=== PATIENT | female | born 1985 | race Caucasian/White ===

== ENCOUNTER 2019-07-14 11:14 | Outpatient (CLI) | payer BC ==
[~2019-07-14] VITALS: Ht 165.1 cm; Wt 97.7 kg
[~2019-07-14 11:14] MED LIST: ACYC-113 PO; ALBU0.63 INH; IBUP-1221 PO; IBUP-1222 PO; LORA-445 PO; OXYC-302 PO; PARO20TA98 PO; PREN1TAB60 PO
[2019-07-14 11:35] VITALS: BP 100/62
== END 2019-07-14 11:50 | disposition home or self-care (01) ==
LOC: LDOP 11:14
PROVIDERS: ATTEND Obstetrics & Gynecology
DX: O26.893 Other specified pregnancy related conditions, third trimester (principal); R20.0 Anesthesia of skin; Z3A.29 29 weeks gestation of pregnancy
CPT/HCPCS: 59025; 99211; G0463

== ENCOUNTER 2019-09-19 21:01 | Inpatient (IN) | payer BC ==
[~2019-09-19] VITALS: Ht 165.1 cm; Wt 100.0 kg
[2019-09-19] MEDS ORDERED: D5%-LACTATED RINGERS 1,000 ML IV SCH (21:02)
[2019-09-19] MEDS ORDERED: OXYTOCIN 30U/ 0.9% NaCL 500ML 500 ML IV PRN ×2 (21:02)
[2019-09-19] MEDS ORDERED: OXYTOCIN 30U/ 0.9% NaCL 500ML 500 ML IV ONE (21:02)
[2019-09-19] MEDS ORDERED: LACTATED RINGERS 1,000 ML IV SCH (21:02)
[2019-09-19] MEDS ORDERED: OXYTOCIN 30U/ 0.9% NaCL 500ML 500 ML ONE (21:08)
[2019-09-19] MEDS ORDERED: LIDOCAINE 1%, 20ML ONE ×2 (21:08→23:23)
[2019-09-19] MEDS ORDERED: MISOPROSTOL 200 MCG TABLET ONE ×2 (21:08→23:23)
[2019-09-19] MEDS ORDERED: NEWBORN KIT ONE (21:08)
[2019-09-19 21:20] VITALS: BP 113/67
[2019-09-19] MEDS ORDERED: TERBUTALINE 1 MG/ML, 1ML IVPush PRN (21:30)
[2019-09-19] MEDS ORDERED: CALCIUM CARBONATE 500 MG TAB.CHEW PO PRN (21:30)
[2019-09-19] MEDS ORDERED: FENTANYL PF 100 MCG/2ML IV PRN (21:30)
[2019-09-19] MEDS ORDERED: FENTANYL PF 100 MCG/2ML IVPush PRN (21:30)
[2019-09-19] MEDS ORDERED: MISOPROSTOL 25 MCG TABLET VG PRN (21:30)
[2019-09-19] MEDS ORDERED: TERBUTALINE 1 MG/ML, 1ML SQ PRN (21:30)
[2019-09-19] MEDS ORDERED: ONDANSETRON 2MG/ML, 2ML IVPush PRN (21:30)
[2019-09-19 21:41] LABS: BASOPHILS # (AUTO) 0.06 x10^3/uL (0-0.1); BASOPHILS % (AUTO) 1 % (0-1); EOSINOPHILS # (AUTO) 0.19 x10^3/uL (0-0.4); EOSINOPHILS % (AUTO) 3 % (1-7); LYMPHOCYTES # (AUTO) 1.72 x10^3/uL (1-3.4); LYMPHOCYTES % (AUTO) 24 % (22-44); MD NO; MEAN CORPUSCULAR HEMOGLOBIN 31.8 pg (27.0-34.8); MEAN CORPUSCULAR HGB CONC 33.7 g/dL (32.4-35.8); MEAN CORPUSCULAR VOLUME 94.3 fL (80-100); MEAN PLATELET VOLUME 7.8 fL (7.4-10.4); MONOCYTES # (AUTO) 0.39 x10^3/uL (0.2-0.8); MONOCYTES % (AUTO) 5 % (2-9); NEUTROPHILS # (AUTO) 4.86 x10^3/uL (1.8-6.8); NEUTROPHILS % (AUTO) 67 % (42-75); PLATELET COUNT 227 x10^3/uL (130-400); RED BLOOD COUNT 4.05 x10^6/uL (3.82-5.3); RED CELL DISTRIBUTION WIDTH 13.7 % (9.6-15.2)
[2019-09-19] MEDS ORDERED: MISOPROSTOL 25 MCG TABLET ONE (22:03)
[2019-09-19] MEDS ORDERED: METOCLOPRAMIDE 5 MG/ML, 2ML IV ONE (23:00)
[2019-09-19] MEDS ORDERED: SODIUM CITRATE/CITRIC ACID 30 ML UDC PO ONE (23:00)
[2019-09-19] MEDS ORDERED: LACTATED RINGERS 1,000 ML IVBOLUS ONE (23:00)
[2019-09-19] MEDS ORDERED: METOCLOPRAMIDE 5 MG/ML, 2ML ONE (23:16)
[2019-09-19] MEDS ORDERED: SODIUM CITRATE/CITRIC ACID 30 ML UDC ONE (23:16)
[2019-09-19] MEDS ORDERED: ACYCLOVIR 400 MG TABLET ONE (23:38)
[2019-09-19] MEDS: ACYCLOVIR 400 MG TABLET PO SCH (23:42)
[2019-09-20] MEDS ORDERED: CALCIUM CARBONATE 500 MG TAB.CHEW PO PRN (01:00)
[2019-09-20] MEDS ORDERED: CALCIUM CARBONATE 500 MG TAB.CHEW ONE (01:16)
[2019-09-20] MEDS ORDERED: ACYCLOVIR 400 MG TABLET ONE (07:00)
[2019-09-20] MEDS: ACYCLOVIR 400 MG TABLET PO SCH ×2 (07:02→17:54)
[2019-09-20] MEDS ORDERED: morphine SULFATE/PF 0.5 MG/ML, 10ML ONE (07:06)
[2019-09-20] MEDS ORDERED: WATER-INJECTION,STERILE 10 ML IV ONE (08:35)
[2019-09-20] MEDS ORDERED: PHENYLEPHRINE 10 MG/ML ONE (08:35)
[2019-09-20] MEDS ORDERED: OXYTOCIN 10 UNITS/ML, 1ML ONE (08:35)
[2019-09-20] MEDS ORDERED: ONDANSETRON 2MG/ML, 2ML ONE (08:35)
[2019-09-20] MEDS ORDERED: EPHEDRINE 50 MG/ML, 1ML ONE (08:35)
[2019-09-20] MEDS ORDERED: CEFAZOLIN 1,000 MG ONE (08:35)
[2019-09-20] MEDS: LACTATED RINGERS 1,000 ML IV SCH ×4 (08:51→18:51)
[2019-09-20] MEDS ORDERED: METOCLOPRAMIDE 5 MG/ML, 2ML IV PRN (09:00)
[2019-09-20] MEDS ORDERED: MISOPROSTOL 200 MCG TABLET ONE (09:00)
[2019-09-20] MEDS ORDERED: MEPERIDINE/PF 50 MG/ML IVPush PRN (09:00)
[2019-09-20] MEDS ORDERED: MORPHINE SULFATE 4 MG/ML, 1ML IVPush PRN (09:00)
[2019-09-20] MEDS ORDERED: METHYLERGONOVINE 0.2 MG/ML IM PRN (09:00)
[2019-09-20] MEDS ORDERED: ONDANSETRON 2MG/ML, 2ML IV PRN (09:00)
[2019-09-20] MEDS: PRENATAL VIT/IRON/FA 1 EACH TABLET PO SCH (09:00)
[2019-09-20] MEDS ORDERED: morphine SULFATE 10 MG/ML, 1ML IVPush PRN (09:00)
[2019-09-20] MEDS ORDERED: METHYLERGONOVINE 0.2 MG/ML IM ONE (09:00)
[2019-09-20] MEDS ORDERED: ACETAMINOPHEN 325 MG TABLET PO PRN (09:00)
[2019-09-20] MEDS ORDERED: SIMETHICONE 80 MG CHEW TAB PO PRN (09:00)
[2019-09-20] MEDS ORDERED: MISOPROSTOL 200 MCG TABLET PR PRN (09:00)
[2019-09-20] MEDS: OXYTOCIN 30U/ 0.9% NaCL 500ML 500 ML IV SCH ×2 (10:17→18:51)
[2019-09-20] MEDS ORDERED: DIPHENHYDRAMINE 50 MG/ML, 1ML ONE (10:50)
[2019-09-20] MEDS: DIPHENHYDRAMINE 50 MG/ML, 1ML IVPush PRN ×2 (10:52→12:04)
[2019-09-20 11:00] VITALS: BP 105/65
[2019-09-20] MEDS: KETOROLAC 30 MG/1 ML IV SCH ×3 (12:05→23:43)
[2019-09-20 16:00] VITALS: BP 103/68
[2019-09-20 17:07] LABS: BASOPHILS # (AUTO) 0.06 x10^3/uL (0-0.1); BASOPHILS % (AUTO) 1 % (0-1); EOSINOPHILS # (AUTO) 0.07 x10^3/uL (0-0.4); EOSINOPHILS % (AUTO) 1 % (1-7); LYMPHOCYTES # (AUTO) 1.57 x10^3/uL (1-3.4); LYMPHOCYTES % (AUTO) 19 % (22-44); MD NO; MEAN CORPUSCULAR HEMOGLOBIN 31.9 pg (27.0-34.8); MEAN CORPUSCULAR HGB CONC 33.8 g/dL (32.4-35.8); MEAN CORPUSCULAR VOLUME 94.5 fL (80-100); MEAN PLATELET VOLUME 7.8 fL (7.4-10.4); MONOCYTES # (AUTO) 0.36 x10^3/uL (0.2-0.8); MONOCYTES % (AUTO) 4 % (2-9); NEUTROPHILS # (AUTO) 6.43 x10^3/uL (1.8-6.8); NEUTROPHILS % (AUTO) 76 % (42-75); PLATELET COUNT 174 x10^3/uL (130-400); RED BLOOD COUNT 3.51 x10^6/uL (3.82-5.3); RED CELL DISTRIBUTION WIDTH 13.6 % (9.6-15.2)
[2019-09-20] MEDS: LORATADINE 10 MG TABLET PO SCH ×2 (18:00→18:03)
[2019-09-20] MEDS: OXYcodone/APAP 5/325MG TABLET PO PRN ×2 (18:28→22:30)
[2019-09-20 19:15] VITALS: BP 103/71
[2019-09-20] MEDS: DOCUSATE 100 MG CAPSULE PO PRN (22:30)
[2019-09-20 23:45] VITALS: BP 100/61
[2019-09-21] MEDS: LACTATED RINGERS 1,000 ML IV SCH ×5 (00:51→16:51)
[2019-09-21] MEDS: ACYCLOVIR 400 MG TABLET PO SCH ×3 (02:19→18:05)
[2019-09-21 03:40] VITALS: BP 105/69
[2019-09-21] MEDS: OXYTOCIN 30U/ 0.9% NaCL 500ML 500 ML IV SCH ×2 (04:51→14:51)
[2019-09-21] MEDS: KETOROLAC 30 MG/1 ML IV SCH (05:40)
[2019-09-21] MEDS: OXYcodone/APAP 5/325MG TABLET PO PRN ×4 (06:02→22:18)
[2019-09-21] MEDS ORDERED: ONDANSETRON ODT 4 MG ONE (07:09)
[2019-09-21] MEDS: ONDANSETRON ODT 4 MG PO PRN ×2 (07:13→18:03)
[2019-09-21 07:25] VITALS: BP 97/62
[2019-09-21] MEDS: PRENATAL VIT/IRON/FA 1 EACH TABLET PO SCH ×2 (09:00→10:40)
[2019-09-21] MEDS ORDERED: DIPH,PERTUSS(ACELL),TET VAC/PF NC IM-VACC ONE ×2 (09:21→09:30)
[2019-09-21] MEDS: DOCUSATE 100 MG CAPSULE PO PRN ×2 (10:40→22:16)
[2019-09-21 13:00] VITALS: BP 109/71
[2019-09-21] MEDS: LORATADINE 10 MG TABLET PO SCH (18:00)
[2019-09-21 20:18] VITALS: BP 116/78
[2019-09-22] MEDS: OXYTOCIN 30U/ 0.9% NaCL 500ML 500 ML IV SCH (00:51)
[2019-09-22] MEDS: LACTATED RINGERS 1,000 ML IV SCH ×2 (00:51)
[2019-09-22] MEDS: ACYCLOVIR 400 MG TABLET PO SCH ×3 (02:06→17:36)
[2019-09-22] MEDS: OXYcodone/APAP 5/325MG TABLET PO PRN ×4 (05:23→21:52)
[2019-09-22 07:00] VITALS: BP 109/71
[2019-09-22] MEDS ORDERED: IBUPROFEN 600 MG TABLET PO PRN (09:00)
[2019-09-22] MEDS: PRENATAL VIT/IRON/FA 1 EACH TABLET PO SCH (10:07)
[2019-09-22] MEDS: DOCUSATE 100 MG CAPSULE PO PRN (10:07)
[2019-09-22] MEDS: LORATADINE 10 MG TABLET PO SCH (17:36)
[2019-09-22 20:00] VITALS: BP 107/74
[2019-09-23] MEDS: OXYcodone/APAP 5/325MG TABLET PO PRN ×3 (02:15→12:25)
[2019-09-23] MEDS: ACYCLOVIR 400 MG TABLET PO SCH ×2 (02:15→08:10)
[2019-09-23 07:50] VITALS: BP 108/74
[2019-09-23] MEDS: DOCUSATE 100 MG CAPSULE PO PRN (08:10)
[2019-09-23] MEDS: PRENATAL VIT/IRON/FA 1 EACH TABLET PO SCH (08:10)
[2019-09-23] MEDS ORDERED: IBUP-1222 PO (12:14)
[2019-09-23] MEDS ORDERED: OXYC-302 PO (12:14)
[2019-09-23] MEDS ORDERED: DOCU-131 PO (12:14)
== END 2019-09-23 14:40 | disposition home or self-care (01) | DRG 785 ==
LOC: LDIP 21:01 → 2NW 09-20 11:56
PROVIDERS: ADMIT Obstetrics & Gynecology; ATTEND Obstetrics & Gynecology
PROC: 0UB70ZZ Excision of Bilateral Fallopian Tubes, Open Approach (ICD-10-PCS; principal; 2019-09-20)
PROC: 10D00Z1 Extraction of Products of Conception, Low, Open Approach (ICD-10-PCS; 2019-09-20)
DX: O98.32 Other infections with a predominantly sexual mode of transmission complicating childbirth (principal); A60.09 Herpesviral infection of other urogenital tract; O99.52 Diseases of the respiratory system complicating childbirth; J45.909 Unspecified asthma, uncomplicated; O99.344 Other mental disorders complicating childbirth; F32.9 Major depressive disorder, single episode, unspecified; Z37.0 Single live birth; Z3A.39 39 weeks gestation of pregnancy
CPT/HCPCS: 36415; 85025; 86592; 86850; 86900; 88302; 90715; G0378; J0690; J1885; J2274; J2405; Q0162; J1200; J2370; J2590; J2765; J7120

== ENCOUNTER → 2020-07-15 | Outpatient (CLI) | payer BC ==
[~2020-07-15] MED LIST changes: +DOCU-131 PO; -OXYC-302 PO; +OXYC1TAB14 PO
[2020-07-15 13:41] LABS: BASOPHILS % (AUTO) 1 % (0-1); EOSINOPHILS % (AUTO) 5 % (1-7); LYMPHOCYTES % (AUTO) 30 % (22-44); MD NO; MEAN CORPUSCULAR HEMOGLOBIN 30.9 pg (27.0-34.8); MEAN CORPUSCULAR HGB CONC 33.5 g/dL (32.4-35.8); MEAN PLATELET VOLUME 8.7 fL (7.4-10.4); MONOCYTES % (AUTO) 6 % (2-9); NEUTROPHILS % (AUTO) 57 % (42-75); PLATELET COUNT 223 x10^3/uL (130-400)
[2020-07-15 13:53] LABS: ANION GAP 5 mmol/L (5-15); CALCIUM 8.8 mg/dL (8.5-10.1); CHLORIDE 106 mmol/L (98-107); CREATININE 0.78 mg/dL (0.55-1.02)
== END | disposition home or self-care (01) ==
LOC: STAR 12:53
PROVIDERS: ATTEND Obstetrics & Gynecology
DX: Z01.812 Encounter for preprocedural laboratory examination (principal); Z20.822 Contact with and (suspected) exposure to COVID-19; N92.0 Excessive and frequent menstruation with regular cycle
CPT/HCPCS: 36415; 80048; 84702; 85025; U0003

== ENCOUNTER 2020-07-19 05:22 | Day surgery (SDC) | payer BC ==
[~2020-07-19] VITALS: Ht 165.1 cm; Wt 102.0 kg
[2020-07-19 06:25] VITALS: BP 112/75
[2020-07-19 06:29] LABS: HCG UR SG 1.027 (1.003-1.030)
[2020-07-19] MEDS ORDERED: LACTATED RINGERS 1,000 ML IV SCH (06:30)
[2020-07-19] MEDS ORDERED: CHLORHEXIDINE 15 ML UDC PO ONE (06:30)
[2020-07-19] MEDS ORDERED: SILVER NITRATE STICK TP ONE (06:49)
[2020-07-19] MEDS ORDERED: BUPIVACAINE/PF 0.25% ONE (06:50)
[2020-07-19] MEDS ORDERED: EPINEPHRINE 1 MG/ML, 1ML ONE (06:50)
[2020-07-19] MEDS ORDERED: MIDAZOLAM 1 MG/ML, 2ML ONE (07:23)
[2020-07-19] MEDS ORDERED: FENTANYL PF 100 MCG/2ML ONE (07:23)
[2020-07-19] MEDS ORDERED: ACETAMINOPHEN 325 MG TABLET PO PRN (07:30)
[2020-07-19] MEDS ORDERED: PROMETHAZINE 25 MG/ML, 1ML IVPush PRN (07:30)
[2020-07-19] MEDS ORDERED: LABETALOL 5MG/ML, 20ML IV PRN (07:30)
[2020-07-19] MEDS ORDERED: HYDROmorphone 1 MG/ML, 1ML INJ IVPush PRN (07:30)
[2020-07-19] MEDS ORDERED: hydrALAzine 20 MG/ML, 1ML IV PRN (07:30)
[2020-07-19] MEDS ORDERED: HALOPERIDOL 5 MG/ML IV PRN (07:30)
[2020-07-19] MEDS ORDERED: OXYcodone 5 MG/5 ML ORAL.SOL UDC PO PRN (07:30)
[2020-07-19] MEDS ORDERED: FENTANYL PF 100 MCG/2ML IV PRN (07:30)
[2020-07-19] MEDS ORDERED: MEPERIDINE/PF 25MG/0.5ML IVPush PRN (07:30)
[2020-07-19] MEDS ORDERED: DIPHENHYDRAMINE 50 MG/ML, 1ML IVPush PRN (07:30)
[2020-07-19] MEDS ORDERED: KETOROLAC 30 MG/1 ML ONE (08:00)
[2020-07-19] MEDS ORDERED: ONDANSETRON 2MG/ML, 2ML ONE (08:00)
[2020-07-19] MEDS ORDERED: CEFAZOLIN 1,000 MG ONE (08:00)
[2020-07-19] MEDS ORDERED: PROPOFOL 10 MG/ML, 20ML ONE (08:00)
[2020-07-19] MEDS ORDERED: DEXAMETHASONE 4 MG/ML, 1ML ONE (08:00)
[2020-07-19] MEDS ORDERED: MEPERIDINE/PF 25MG/ML,1ML ONE (08:24)
[2020-07-19] MEDS ORDERED: PROMETHAZINE 25 MG/ML, 1ML ONE (08:35)
[2020-07-19] MEDS ORDERED: IBUP-1223 PO (09:16)
[2020-07-19] MEDS ORDERED: HALOPERIDOL 5 MG/ML ONE (09:18)
== END 2020-07-19 10:50 | disposition home or self-care (01) ==
LOC: OUT 05:22
PROVIDERS: ATTEND Obstetrics & Gynecology
DX: N92.0 Excessive and frequent menstruation with regular cycle (principal); I10 Essential (primary) hypertension; J45.909 Unspecified asthma, uncomplicated; F41.9 Anxiety disorder, unspecified; Z88.8 Allergy status to other drugs, medicaments and biological substances
CPT/HCPCS: 36415; 58563; 81025; 86850; 86900; 88305; J0171; J1100; J1630; J1885; J2175; J2250; J2405; J2550; J2704; J3010; J7120; J0690